=== PATIENT | female | born 1990 | race Two or more races ===

== ENCOUNTER 2021-11-02 06:38 | Inpatient (IN) | payer MEDICAID ==
[~2021-11-02] VITALS: Ht 160 cm; Wt 92.5 kg
[2021-11-02 08:19] LABS: HEMOGLOBIN 12.4 gm/dl (12.3-15.3); RED BLOOD COUNT 3.99 M/UL (4.00-5.10)
[2021-11-02] MEDS ORDERED: PRENATAL TABLE1 EAC6 PO (08:40)
[2021-11-03 05:00] LABS: HEMOGLOBIN 9.4 gm/dl (12.3-15.3)
[2021-11-04] MEDS ORDERED: COLACE100 MG PO (05:26)
[2021-11-04] MEDS ORDERED: IBUPROFEN800 MG PO (05:26)
[2021-11-04] MEDS ORDERED: PERCOCET 5/325 T1 EA PO (05:26)
== END 2021-11-04 19:49 | disposition home or self-care (01) | DRG 788 ==
LOC: OB 06:38
PROVIDERS: ADMIT Obstetrics & Gynecology
PROC: 3E0234Z Introduction of Serum, Toxoid and Vaccine into Muscle, Percutaneous Approach (ICD-10-PCS; 2021-11-02)
PROC: 10D00Z1 Extraction of Products of Conception, Low, Open Approach (ICD-10-PCS; principal; 2021-11-02 10:43)
DX: O34.211 Maternal care for low transverse scar from previous cesarean delivery (principal); N85.8 Other specified noninflammatory disorders of uterus; Z3A.39 39 weeks gestation of pregnancy; Z37.0 Single live birth; K66.0 Peritoneal adhesions (postprocedural) (postinfection); O99.62 Diseases of the digestive system complicating childbirth; Z23 Encounter for immunization; Z28.310 Unvaccinated for COVID-19
CPT/HCPCS: 36415; 81001; 82800; 85014; 85018; 85025; 90715; 96372; C9113; J0690; J1885; J2274; J2370; J2405; J2590; J2795; J3010; J7120